=== PATIENT | female | born 1940 | race African-American/Black ===

== ENCOUNTER 2018-02-09 15:19 | Inpatient (IN) ==
[2018-02-09] MEDS ORDERED: METOPROLOL TARTRATE 5 MG/5 ML VIAL IV STA (16:15)
[2018-02-09 16:22] LABS: Basophils % 0.3 % (0.0-0.8); Eosinophils % 0.3 % (0.00-10.9); Hematocrit 43.1 VOL% (35.7-47.0); Hemoglobin 14.4 GM/DL (12.0-16.0); Immature Granulocytes % 0.3 %; Immature Granulocytes Absolute 0.02 #; Lymphocytes # 2.1 10*3/uL (1.4-4.0); Lymphocytes % 32.9 % (21.3-54.2); Mean Corpuscular HGB Conc 33.4 GM/DL (32-36); Mean Corpuscular Hemoglobin 31 PG (27-34); Mean Corpuscular Volume 93.7 FL (87-102); Mean Platelet Volume 10.4 FL (9.6-12.0); Monocytes # 0.3 10*3/uL (0.11-0.8); Monocytes % 4.8 % (1.7-12.7); Neutrophils % 61.4 % (38.7-73.9); Platelet Count 204 T/CUMM (130-400); Red Cell Distribution Width 13.2 % (9.3-17.3); White Blood Count 6.5 T/CUMM (4-12)
[2018-02-09] MEDS ORDERED: METOPROLOL TARTRATE 5 MG/5 ML VIAL IV ONE (16:32)
[2018-02-09 16:34] LABS: Partial Thromboplastin Time 25.7 SECS (0-40)
[2018-02-09 16:54] LABS: Alanine Aminotransferase 19 U/L (13-56); Albumin 4.3 G/DL (3.4-5.0); Alkaline Phosphatase 83 U/L (45-117); Aspartate Amino Transferase 38 U/L (0-37); Blood Urea Nitrogen 14 MG/DL (7-18); Calcium 9.1 MG/DL (8.5-10.1); Free T4 (Free Thyroxine) 0.95 NG/DL (0.76-1.46); Glucose 133 MG/DL (74-106); Osmolality,Calculated 275.8 MOS/KG (273-304); Potassium 3.5 MMOL/L (3.5-5.1); Sodium 137 MMOL/L (136-145); Total Protein 7.9 G/DL (6.4-8.3); Troponin I Only < 0.015 NG/ML (0.00-0.045)
[2018-02-09] MEDS ORDERED: hydrALAZINE 20 MG/1 ML VIAL ONE (17:08)
[2018-02-09] MEDS ORDERED: hydrALAZINE 20 MG/1 ML VIAL IV STA (17:09)
[2018-02-09 17:19] LABS: Apearance,Urine CLEAR (Clear); Bilirubin,Urine Negative (Negative); Blood, Urine Negative (Negative); Glucose,Urine (UA) Negative (Negative); Ketones,Urine Negative (Negative); Mucus,Urine Occasional /LPF (Occasional); Nitrite,Urine Negative (Negative); Protein,Urine 30 MG/DL; RBC,Urine 2 /HPF (0-4); Squamous Epithelial Cell,Urine Occasional /HPF (0-10); Urine Color Straw (Yellow); Urine Specific Gravity 1.004 (1.001-1.035); Urine Urobilinogen < 2.0 EU/DL (0.2-1.0); WBC,Urine 1 /HPF (0-6)
[2018-02-09 17:28] LABS: Barbiturates Screen,Urine Negative (Negative); Benzodiazepines Screen,Urine Negative (Negative); Cannabinoid Screen,Urine Negative (Negative); Opiate Screen,Urine Negative (Negative); Phencyclidine Screen,Urine Negative (Negative)
[2018-02-09] MEDS ORDERED: cloNIDine 0.1 MG TABLET PO STA (17:56)
[2018-02-09] MEDS ORDERED: cloNIDine 0.1 MG TABLET ONE (18:02)
[2018-02-09] MEDS ORDERED: LORazepam 2 MG/1 ML VIAL IV STA (18:41)
[2018-02-09] MEDS ORDERED: LORazepam 2 MG/1 ML VIAL ONE (18:47)
[2018-02-09 19:29] LABS: CKMB % 2.2 %; Troponin I Only 0.025 NG/ML (0.00-0.045)
[2018-02-09] MEDS ORDERED: SODIUM CHLORIDE 0.9% 1,000 ML IV STA ×2 (19:42→21:42)
[2018-02-10] MEDS ORDERED: ALBUTEROL 2.5 MG/3 ML NEB RESP TX PRN (01:10)
[2018-02-10] MEDS ORDERED: ONDANSETRON 4 MG/2 ML VIAL IV PRN (01:10)
[2018-02-10] MEDS: SODIUM CHLORIDE 0.9% 1,000 ML IV SCH ×2 (01:59→14:52)
[2018-02-10] MEDS ORDERED: PANTOPRAZOLE 40 MG VIAL IV SCH (09:00)
[2018-02-10] MEDS: DOCUSATE SODIUM 100 MG CAPSULE PO SCH ×2 (09:39→20:40)
[2018-02-10] MEDS: ENOXAPARIN 40 MG/0.4 ML SYRINGE SUBCUT SCH (09:40)
[2018-02-10 09:52] LABS: Albumin 3.6 G/DL (3.4-5.0); Bilirubin,Total 0.6 MG/DL (0.2-1.0); Calcium 8.4 MG/DL (8.5-10.1); Osmolality,Calculated 282.1 MOS/KG (273-304); Potassium 3.5 MMOL/L (3.5-5.1); Total Protein 6.4 G/DL (6.4-8.3); Troponin I Only 0.971 NG/ML (0.00-0.045)
[2018-02-10] MEDS ORDERED: CARVEDILOL 6.25 MG TABLET PO SCH (17:00)
[2018-02-10] MEDS: hydrALAZINE 20 MG/1 ML VIAL IV PRN (19:35)
[2018-02-10] MEDS ORDERED: cloNIDine 0.1 MG TABLET PO PRN (22:08)
[2018-02-10] MEDS: METOPROLOL TARTRATE 5 MG/5 ML VIAL IV SCH ×3 (22:27→22:40)
[2018-02-11 06:14] LABS: Basophils % 0.3 % (0.0-0.8); Eosinophils % 0.1 % (0.00-10.9); Hematocrit 37.5 VOL% (35.7-47.0); Hemoglobin 12.5 GM/DL (12.0-16.0); Immature Granulocytes % 0.3 %; Immature Granulocytes Absolute 0.02 #; Lymphocytes # 1.8 10*3/uL (1.4-4.0); Lymphocytes % 27.2 % (21.3-54.2); Mean Corpuscular HGB Conc 33.3 GM/DL (32-36); Mean Corpuscular Hemoglobin 31 PG (27-34); Mean Corpuscular Volume 92.8 FL (87-102); Mean Platelet Volume 10.8 FL (9.6-12.0); Monocytes # 0.4 10*3/uL (0.11-0.8); Monocytes % 6.2 % (1.7-12.7); Neutrophils # 4.4 10*3/uL (1.4-7.4); Neutrophils % 65.9 % (38.7-73.9); Platelet Count 180 T/CUMM (130-400); Red Blood Count 4.04 MC/CUMM (3.8-5.5); Red Cell Distribution Width 13.3 % (9.3-17.3); White Blood Count 6.7 T/CUMM (4-12)
[2018-02-11 06:58] LABS: Calcium 8.6 MG/DL (8.5-10.1); Osmolality,Calculated 270.8 MOS/KG (273-304); Potassium 3.5 MMOL/L (3.5-5.1); Risk Ratio 3.02; VLDL CHOLESTEROL 11.4 MG/DL
[2018-02-11] MEDS: DOCUSATE SODIUM 100 MG CAPSULE PO SCH ×2 (09:21→21:05)
[2018-02-11] MEDS: ENOXAPARIN 40 MG/0.4 ML SYRINGE SUBCUT SCH (09:21)
[2018-02-11] MEDS: CARVEDILOL 12.5 MG TABLET PO SCH ×2 (09:21→21:05)
[2018-02-12 07:19] LABS: Basophils % 0.4 % (0.0-0.8); Eosinophils # 0.1 10*3/uL (0.0-0.87); Eosinophils % 0.9 % (0.00-10.9); Hematocrit 36.5 VOL% (35.7-47.0); Hemoglobin 12.5 GM/DL (12.0-16.0); Immature Granulocytes % 0.6 %; Immature Granulocytes Absolute 0.03 #; Lymphocytes # 2.2 10*3/uL (1.4-4.0); Lymphocytes % 40.9 % (21.3-54.2); Mean Corpuscular HGB Conc 34.2 GM/DL (32-36); Mean Corpuscular Hemoglobin 31 PG (27-34); Mean Platelet Volume 10.9 FL (9.6-12.0); Monocytes # 0.4 10*3/uL (0.11-0.8); Monocytes % 6.6 % (1.7-12.7); Neutrophils # 2.8 10*3/uL (1.4-7.4); Neutrophils % 50.6 % (38.7-73.9); Platelet Count 179 T/CUMM (130-400); Red Blood Count 4.01 MC/CUMM (3.8-5.5); Red Cell Distribution Width 13.2 % (9.3-17.3); White Blood Count 5.5 T/CUMM (4-12)
[2018-02-12 07:47] LABS: Albumin 3.2 G/DL (3.4-5.0); Bilirubin,Total 0.9 MG/DL (0.2-1.0); Calcium 8.8 MG/DL (8.5-10.1); Osmolality,Calculated 272.7 MOS/KG (273-304)
[2018-02-12] MEDS: DOCUSATE SODIUM 100 MG CAPSULE PO SCH ×2 (08:59→21:00)
[2018-02-12] MEDS: CARVEDILOL 12.5 MG TABLET PO SCH ×2 (08:59→21:00)
[2018-02-12] MEDS: ENOXAPARIN 40 MG/0.4 ML SYRINGE SUBCUT SCH (09:00)
[2018-02-13] MEDS: DOCUSATE SODIUM 100 MG CAPSULE PO SCH ×2 (09:51→20:53)
[2018-02-13] MEDS: CARVEDILOL 12.5 MG TABLET PO SCH ×2 (09:51→20:53)
[2018-02-13] MEDS: ENOXAPARIN 40 MG/0.4 ML SYRINGE SUBCUT SCH (09:51)
[2018-02-13] MEDS: CHLORTHALIDONE 25 MG TABLET PO SCH (10:06)
[2018-02-13] MEDS: LOSARTAN 25 MG TABLET PO SCH (10:06)
[2018-02-13] MEDS: ASPIRIN EC 81 MG TABLET PO SCH (10:07)
[2018-02-13] MEDS: hydrALAZINE 20 MG/1 ML VIAL IV PRN (18:17)
[2018-02-13] MEDS ORDERED: NITROGLYCERIN SL 0.4 MG TABLET SL PRN (18:56)
[2018-02-13] MEDS ORDERED: MORPHINE 2 MG/1 ML SYRINGE IV PRN (18:56)
[2018-02-13] MEDS ORDERED: ASPIRIN CHEW 81 MG TABLET PO ONE (18:56)
[2018-02-13] MEDS ORDERED: CLORAZEPATE 3.75 MG TABLET PO PRN (19:11)
[2018-02-13] MEDS ORDERED: LABETALOL 20 MG/4 ML SYRINGE IV PRN (19:12)
[2018-02-13 19:25] LABS: Basophils % 0.4 % (0.0-0.8); Eosinophils # 0.1 10*3/uL (0.0-0.87); Eosinophils % 0.7 % (0.00-10.9); Hematocrit 45.5 VOL% (35.7-47.0); Hemoglobin 15.8 GM/DL (12.0-16.0); Immature Granulocytes % 0.1 %; Immature Granulocytes Absolute 0.01 #; Lymphocytes # 3.1 10*3/uL (1.4-4.0); Lymphocytes % 44.7 % (21.3-54.2); Mean Corpuscular HGB Conc 34.7 GM/DL (32-36); Mean Corpuscular Hemoglobin 31 PG (27-34); Mean Corpuscular Volume 90.5 FL (87-102); Mean Platelet Volume 10.8 FL (9.6-12.0); Monocytes # 0.4 10*3/uL (0.11-0.8); Neutrophils # 3.4 10*3/uL (1.4-7.4); Neutrophils % 48.1 % (38.7-73.9); Platelet Count 229 T/CUMM (130-400); Red Blood Count 5.03 MC/CUMM (3.8-5.5); Red Cell Distribution Width 13.2 % (9.3-17.3)
[2018-02-13 19:51] LABS: Albumin 4.4 G/DL (3.4-5.0); Bilirubin,Total 0.6 MG/DL (0.2-1.0); Calcium 9.7 MG/DL (8.5-10.1); Osmolality,Calculated 271.1 MOS/KG (273-304); Potassium 3.3 MMOL/L (3.5-5.1); Total Protein 8.4 G/DL (6.4-8.3)
[2018-02-13 19:59] LABS: Troponin I Only 0.121 NG/ML (0.00-0.045)
[2018-02-13] MEDS ORDERED: ATORVASTATIN 10 MG TABLET PO SCH (21:00)
[2018-02-14 00:44] LABS: Troponin I Only 0.193 NG/ML (0.00-0.045)
[2018-02-14 06:37] LABS: Troponin I Only 0.237 NG/ML (0.00-0.045)
[2018-02-14 08:00] VITALS: BP 124/71
[2018-02-14] MEDS ORDERED: POTASSIUM CHLORIDE 20 MEQ TABLET PO PRN (08:41)
[2018-02-14] MEDS ORDERED: PANTOPRAZOLE 40 MG TABLET PO SCH (09:00)
[2018-02-14] MEDS: DOCUSATE SODIUM 100 MG CAPSULE PO SCH (09:50)
[2018-02-14] MEDS: CHLORTHALIDONE 25 MG TABLET PO SCH (09:50)
[2018-02-14] MEDS: ASPIRIN EC 81 MG TABLET PO SCH (09:50)
[2018-02-14] MEDS: CARVEDILOL 12.5 MG TABLET PO SCH (09:50)
[2018-02-14] MEDS: LOSARTAN 25 MG TABLET PO SCH (09:51)
[2018-02-14] MEDS: ENOXAPARIN 40 MG/0.4 ML SYRINGE SUBCUT SCH (09:51)
[2018-02-14] MEDS ORDERED: ALUM/MAG/SIMETH/LIDO VISC 1:1 30 ML BOTTLE PO ONE (12:00)
== END 2018-02-14 12:21 | disposition home or self-care (01) | DRG 315 ==
LOC: N.ED 15:19 → N.EDINP 22:37 → SUATTDRO 22:37 → N.ICU 02-10 00:40 → N.2E 02-10 12:17
PROVIDERS: ADMIT Hospitalist; ATTEND Internal Medicine